=== PATIENT | female | born 1980 | race Caucasian/White ===

== ENCOUNTER 2019-04-16 11:14 | Inpatient (IN) ==
--- NOTE | 2019-04-16 11:42 | PROVIDER DOCUMENTATION ---
This chart was entered by Ebony Linares Scribe, acting as scribe for Marina Rider MD. HPI-Abdominal Pain/GI Problem - General Chief Complaint: Abdominal Pain Stated Complaint: HERNIA SX Time Seen by Provider: 04/16/19 11:19 Source: patient Allergies/Adverse Reactions: Patient Allergies Allergy/AdvReac Type Severity Reaction Status Date / Time No Known Allergies Allergy Verified 04/16/19 11:23 Home Medications: Home Medication List Medication Instructions Recorded Confirmed Last Taken Type Metformin [Glucophage] 500 mg PO BID #60 tab 04/16/19 Unknown Rx - History of Present Illness-ABD Nature of Presenting Problems: Patient is a 38 y/o female presenting to the ED today c/o umbilical hernia pain. Patient states she has had an umbilical hernia for approximately one year. Patient reports it has protruded out twice previously but has reduced easily but state when hernia began to protrude last night, she has been unable to reduce hernia and has had consistent pain. Patient states she has not seen a doctor regarding the hernia as she "avoids doctors". Patient denies all other signs /symptoms. Abdominal Pain Onset Location: reports: periumbilical Pain Radiation: reports: no radiation Onset/Duration: reports: last night Timing: reports: still present Associated Symptoms: denies: diarrhea, fever/chills, genitourinary problems, nausea, vomiting Rectal Bleeding: reports: none Rectal Pain: reports: none Bruising or Bleeding Gums?: No Similar Symptoms Previously?: No Recently seen or treated by another doctor?: No Review of Systems - Adult - REVIEW OF SYSTEMS - ADULT Constitutional: denies: chills, fever Eyes: reports: no symptoms reported Ears, Nose, Mouth & Throat: reports: no symptoms reported Cardiovascular: denies: chest pain Respiratory: denies: cough, shortness of breath Gastrointestinal: reports: abdominal pain. denies: diarrhea, nausea, vomiting Genitourinary: reports: no symptoms reported Musculoskeletal: reports: no symptoms reported Integumentary: reports: no symptoms reported Neurological: reports: no symptoms reported Psychiatric: reports: no symptoms reported Endocrine: reports: no symptoms reported Hematologic/Lymphatic: reports: no symptoms reported Allergic/Immunologic: reports: no symptoms reported All Other Systems: Reviewed and Negative Past History - Adult - PAST MEDICAL HISTORY-ADULT Review of Records: reports: Old Records Reviewed, Nursing Assessment Review, Medications Reviewed, Social history reviewed & non-contributory. Major Childhood Illnesses: reports: denies history Cardiovascular: reports: denies history Respiratory: reports: denies history Gastrointestinal: reports: denies history Obstetrical/Gynecological: reports: denies history Genitourinary: reports: denies history Musculoskeletal: reports: denies history Neurological: reports: denies history Psychiatric: reports: denies history Endocrine/Immune: reports: denies history Other Conditions: reports: denies history Physical Exam-General - PHYSICAL EXAM-ADULT Initial Vital Signs Reviewed: Yes - CONSTITUTIONAL General Appearance: appears well, alert, no apparent distress - EYES Eyes: PERRL/EOMI - HEAD, EARS, NOSE, MOUTH & THROAT HENMT: normocephalic/atraumatic, moist mucous membranes, normal ENT inspection - NECK Neck: non-tender, full range of motion, supple - RESPIRATORY Respiratory: lungs clear, normal breath sounds, no respiratory distress, no accessory muscle use - CARDIOVASCULAR Cardiovascular: regular rate, rhythm, no edema, no murmur - GASTROINTESTINAL (ABDOMEN) Abdominal Exam: normal bowel sounds, soft, hernia (umbilical, 8x6 in diameter, tender, difficult/unable to reduce, no hyperactive bowel sounds in hernia). negative: abdominal bruit, distended - MUSCULOSKELETAL Back Exam: normal inspection, no CVA tenderness, no vertebral tenderness Extremity: normal range of motion, non-tender, normal gait, normal inspection, no pedal edema - SKIN Integumentary: normal color, normal turgor, warm/dry - NEUROLOGIC Neurologic: grossly normal - PSYCHIATRIC Psych/Mental Status: normal mood/affect, normal thought content, normal thought process, oriented x 3 Progress - PLAN OF CARE/RESULTS Progress/Plan/Lab Results: Vital Signs - 8 hr 04/16/19 11:19 Temperature 97.8 F Pulse Rate 87 Respiratory Rate 18 Blood Pressure 130/76 O2 Sat by Pulse Oximetry 96 Patient with incarcerated bowel and SBO. No vomiting in the ED. Glucose also elevated to 330s but patient with no diagnosis of DM. Spoke to patient about the glucose and the CT findings and she voiced understanding. Spoke to Dr Brandt marketing education teacher for general surgery who accepted patient for admission. Wanted zosyn [facility] arted and her transferred to [facility]. Wanted her NPO. Orders placed per his recommendation. Result Diagrams: 04/16/19 11:50 04/16/19 11:50 - CT/MRI 1 CT Study: Abdomen Impression: See EMR Report (EXAM: CT ABD/PELVIS W/IV CONT ONLY 04/16/2019 HISTORY: difficult to reduce umbilical hernia TECHNIQUE: This exam was performed using automated exposure control, adjustment of mA or kV according to patient size, and/or use of iterative reconstruction technique. COMMENT: There is minimal atelectasis or fibrosis in the posterior costophrenic sulci of the lower lobes bilaterally. There are no previous studies available for comparison. There are no abnormal fluid collections in the chest. There may be some small stones layering dependently in the gallbladder. The liver, spleen, adrenal gla nds, and pancreas are within normal limits. There is diverticulosis in the left colon. There are distended small bowel loops proximally. This is apparently due to the presence of a umbilical hernia which includes a small bowel loop. There is fluid within the hernia. There is a moderate amount of stool throughout the ascending and transverse colon. The aorta is not distended. There is no significant adenopathy. The stomach is not distended. Pelvis: The appendix is normal in appearance. Markedly distended small bowel loops are again noted proximal to the umbilical hernia. The distal ileum is normal in caliber. There is free fluid in the cul-de-sac. The urinary bladder is not distended. There is an apparent left ovarian cyst measuring 2.8 cm in diameter. There is vacuum phenomenon in both sacroiliac joints. There is no evidence of acute bony abnormality. IMPRESSION: Incarcerated umbilical hernia with secondary small bowel obstruction. Minimal ascites. Electronically signed by Papito Glovre 04/16/2019 12:49 PM 04/16/19 1249 Interpreting Physician: Papito Glover MD Dictated Date/Time: 04/16/19 1246 cc: Marina Rider MD; None,PCP) - CONSULTS/PCP/HOSPITALIST Notification #1 *Consult/PCP/Hospitalist*: Dr Brandt Time Discussed: 13:05 Consult Disposition: Admit (Zosyn, NPO and transfer to [place]) Departure - Departure Date of Disposition Decision: 04/16/19 Time of Disposition Decision: 13:14 DIAGNOSIS: Diabetes mellitus, new onset, Hyperglycemia, Incarcerated hernia, Small bowel obstruction Disposition: ADMITTED INPATIENT 09 Certified Medical Emergency: Emergent Condition: Stable Additional Instructions: ED Follow Up Instructions: You have been treated by a care provider in the Emergency Department. These instructions are being provided to you so you can have an understanding of how to care for yourself upon discharge. Upon discharge from the Emergency Department, you are responsible for making arrangements for follow-up care by a physician of your choice. Take all prescribed medications as directed. Return to the Emergency Department immediately for any new or worsening symptoms. You may call the Physician Referral phone number at [phone] to obtain a list of Physicians who are taking new patients. Prescriptions: Metformin [Glucophage] 500 mg PO BID #60 tab Referrals and Follow-Ups: None,PCP [Primary Care Provider] - - Critical Care Note This patient required my direct & personal management of CC.: No Attestation - Physician/ MARIO Attestation Patient care was provided by Advanced Practice Provider:: No The physician spent face to face time with patient:: Yes Advanced Practice Provider documentation review:: Supervising physician onsite and consulted in the evaluation and care of this patient. The physician did have a face to face encounter with the patient. This chart was documented by the indicated scribe, (Ebony Linares, Murali) and accurately reflects the services I performed and decisions made by me, Marina Rider MD, as attested by the provider's signature.
[2019-04-16 11:56] LABS: BASO# 0.05 X1000 (0.0-0.2); BASO% 0.3 % (0.0-0.8); EOS# 0.01 X1000 (0.0-0.7); EOS% 0.1 % (0.0-10.0); HEMATOCRIT 46.8 % (37.0-47.0); IMM GRAN# 0.04 X1000 (0.0-0.04); IMM GRAN% 0.2 % (0.0-0.5); LYMPH# 2.57 X1000 (1.2-3.4); LYMPH% 13.7 % (20.5-51.1); MCH 29.6 PG (27-31); MCHC 34.2 g/dL (33-37); MCV 86.5 FL (81-99); MONO# 0.94 X1000 (0.11-0.59); MPV 9.9 FL (7.4-10.4); NEUT# 15.15 X1000 (1.4-6.5); NEUT% 80.7 % (42.2-75.2); PLT 393 X1000 (130-400); RBC 5.41 XMIL (4.2-5.4); RDW 12.2 % (11.5-14.5); WBC 18.76 X1000 (4.8-10.8)
[2019-04-16 12:01] LABS: URINE SOURCE CLEAN CATCH
[2019-04-16 12:03] LABS: BILIRUBIN URINE NEGATIVE (NEGATIVE); BLOOD URINE NEGATIVE (NEGATIVE); COLOR YELLOW; GLUCOSE URINE >1000 mg/dL (NEGATIVE); KETONE URINE 40 mg/dL (NEGATIVE); LEUKOCYTES URINE NEGATIVE (NEGATIVE); NITRITE URINE NEGATIVE (NEGATIVE); PH URINE 5.5; PROTEIN URINE 30 mg/dL (NEGATIVE); TURBIDITY URINE CLEAR (CLEAR); UROBILINOGEN URINE 2 mg/dL (NORMAL)
[2019-04-16 12:05] LABS: UR EPITHELIAL CELLS <10 /HPF (<10); URINE BACTERIA NEGATIVE /HPF; URINE RBC <10 /HPF (<10); URINE WBC <10 /HPF (<10)
[2019-04-16 12:13] LABS: AGAP 15; ALBUMIN 4.8 g/dL (3.5-5.0); ALKALINE PHOSPHATASE 79 U/L (32-104); BUN 17 mg/dL (8-22); CALCIUM 10.6 mg/dL (8.8-10.2); CHLORIDE 93 mmol/L (98-107); COSMO 283; CREATININE 0.6 mg/dL (0.5-0.9); ESTIMATED GFR > 60; GLUCOSE 332 mg/dL (70-104); GOT 11 U/L (10-30); GPT 12 U/L (10-36); POTASSIUM 4.2 mmol/L (3.5-5.1); SODIUM 134 mmol/L (136-145); TCO2 26 mmol/L (25-35); TOTAL PROTEIN 7.9 g/dL (6.3-8.3)
[2019-04-16] MEDS ORDERED: NS 1,000 ML IV ONE ×3 (12:23→16:00)
--- NOTE | 2019-04-16 12:51 | Diag Imaging Result Doc PS360 ---
EXAM: CT ABD/PELVIS W/IV CONT ONLY 04/16/2019 HISTORY: difficult to reduce umbilical hernia TECHNIQUE: This exam was performed using automated exposure control, adjustment of mA or kV according to patient size, and/or use of iterative reconstruction technique. COMMENT: There is minimal atelectasis or fibrosis in the posterior costophrenic sulci of the lower lobes bilaterally. There are no previous studies available for comparison. There are no abnormal fluid collections in the chest. There may be some small stones layering dependently in the gallbladder. The liver, spleen, adrenal glands, and pancreas are within normal limits. There is diverticulosis in the left colon. There are distended small bowel loops proximally. This is apparently due to the presence of a umbilical hernia which includes a small bowel loop. There is fluid within the hernia. There is a moderate amount of stool throughout the ascending and transverse colon. The aorta is not distended. There is no significant adenopathy. The stomach is not distended. Pelvis: The appendix is normal in appearance. Markedly distended small bowel loops are again noted proximal to the umbilical hernia. The distal ileum is normal in caliber. There is free fluid in the cul-de-sac. The urinary bladder is not distended. There is an apparent left ovarian cyst measuring 2.8 cm in diameter. There is vacuum phenomenon in both sacroiliac joints. There is no evidence of acute bony abnormality. IMPRESSION: Incarcerated umbilical hernia with secondary small bowel obstruction. Minimal ascites. Electronically signed by Papito Glover 04/16/2019 12:49 PM
[2019-04-16] MEDS ORDERED: ZOFRAN IV PRN ×3 (13:16→21:17)
[2019-04-16] MEDS ORDERED: TORADOL IV PRN ×2 (13:16→15:38)
[2019-04-16] MEDS ORDERED: MORPHINE IV PRN ×2 (13:16→15:38)
[2019-04-16] MEDS ORDERED: HUMULIN R (PARKWAY) SUBQ PRN (13:18)
--- NOTE | 2019-04-16 15:23 | Diag Imaging Result Doc PS360 ---
EXAM: CHEST/ABD TUBE PLACEMENT HISTORY: NGT placement TECHNIQUE: Chest abdomen single view COMPARISON: None. FINDINGS: A nasogastric tube overlies the esophagus and stomach. This appears to be in good position. No free air beneath the diaphragm. Electronically signed by Hesham Escalona 04/16/2019 3:21 PM
[2019-04-16] MEDS ORDERED: HUMULIN R SUBQ PRN (15:42)
[2019-04-16] MEDS ORDERED: SENSORCAINE 0.5%-EPI 1:200,000 ONE (16:12)
[2019-04-16] MEDS ORDERED: HURRICAINE SPRAY (DOSE) ONE (16:13)
[2019-04-16] MEDS ORDERED: XYLOCAINE-MPF 2% ONE ×3 (16:25→18:08)
[2019-04-16] MEDS ORDERED: ROBINUL ONE ×2 (16:25→16:42)
[2019-04-16] MEDS ORDERED: NEO-SYNEPHRINE ONE (16:25)
[2019-04-16] MEDS ORDERED: STERILE WATER INJ. ONE (16:25)
[2019-04-16] MEDS ORDERED: NORCURON ONE (16:25)
[2019-04-16] MEDS ORDERED: FENTANYL ONE ×2 (16:25→16:43)
[2019-04-16] MEDS ORDERED: SODIUM CHLORIDE 0.9% 20 ML ONE (16:25)
[2019-04-16] MEDS ORDERED: QUELICIN (DOSE) ONE (16:25)
[2019-04-16] MEDS ORDERED: DIPRIVAN 1% ONE (16:29)
[2019-04-16] MEDS ORDERED: VERSED ONE (16:30)
[2019-04-16] MEDS ORDERED: LR 1,000 ML ONE ×2 (16:33→18:47)
[2019-04-16] MEDS ORDERED: PEPCID ONE (16:47)
[2019-04-16] MEDS ORDERED: ZOSYN 3.375 GM in NS 50 ML IV ONE (17:00)
[2019-04-16] MEDS ORDERED: DECADRON ONE (17:09)
[2019-04-16] MEDS ORDERED: ZOFRAN ONE (17:09)
[2019-04-16] MEDS ORDERED: NEOSTIGMINE ONE (17:10)
--- NOTE | 2019-04-16 17:30 | HISTORY AND PHYSICAL ---
DATE: 04/16/2019 CHIEF COMPLAINT: Abdominal pain. REASON FOR CONSULTATION: Incarcerated ventral hernia. HISTORY OF PRESENT ILLNESS: This is a 38-year-old female, otherwise healthy. She has had no prior abdominal surgery. She has known she has had a bulge at her umbilicus, but it became acutely more painful. She developed nausea, vomiting, and it was swollen. She went to the ER where attempts at reduction were unsuccessful. CT scan showed an incarcerated umbilical hernia containing small bowel and obstruction, but no evidence of ischemia. NG tube was placed, Ogden catheter placed. MEDICAL HISTORY: Negative. SURGICAL HISTORY: Negative. SOCIAL HISTORY: She does smoke about 1/2 pack a day. She works as a cook. FAMILY HISTORY: Reviewed and noncontributory. REVIEW OF SYSTEMS: A 10-point review of systems was performed and negative unless otherwise mentioned in the HPI. OBJECTIVE: Vital Signs: On exam, she is afebrile. Pulse 76, blood pressure 121/76, oxygen saturation of 93%. She is 106 pounds, 5 feet 8. General: She is alert, in no acute distress, but obviously uncomfortable. HEENT: No scleral icterus. There is NG tube in place. Cardiovascular: Normal rate. Pulmonary: No increased work of breathing. Abdomen: Soft. There is a supraumbilical hernia that is firm, tense. There are no overlying skin changes. Very tender. Integumentary: Warm and dry. Psychiatric: Appropriate affect. Neurologic: No gross deficits. Lymphatic: No inguinal or cervical adenopathy. Peripheral Vascular: No lower extremity edema. LABS: She does have leukocytosis. White count is 18, hematocrit 46, platelets 393,000. Creatinine is 0.6. Glucose is 332. LFTs are normal. Albumin is normal. Urinalysis, she does have 1000 glucose in her urine. I reviewed her CT scan that shows findings noted in her HPI. ASSESSMENT AND PLAN: This is a 38-year-old female with incarcerated ventral hernia and bowel obstruction associated with this. I do not see obvious signs of ischemia, although she does have leukocytosis. She is quite tender. I have recommended emergent operation and repair with reduction of the bowel, possible bowel resection. We discussed that we will not use mesh given the emergent setting and the possibility of bowel compromise. Although the defect itself is quite small, I am doubtful that mesh is indicated. We did discuss possibility of requiring hernia repair in the future. She understands. We discussed risk of bleeding, infection, damage to surrounding structures, bowel resection, possible leak, possible recurrence, and anticipated recovery. She understands all this and consents. We will mobilize her to the operating room as soon as possible. cc: Keysha Brandt MD
[2019-04-16] MEDS: DILAUDID ONE ×4 (18:47→19:15)
--- NOTE | 2019-04-16 18:48 | Diag Imaging Result Doc PS360 ---
EXAM: KUB ABDOMEN HISTORY: INCORRECT INSTRUMENT COUNT TECHNIQUE: Single view COMPARISON: 3:14 PM FINDINGS: There are midline skin jayna. A Ogden catheter is present in the urinary bladder. There is no other foreign body identified in the abdomen or pelvis. There is an ileus. IMPRESSION: No abnormal foreign body identified. Electronically signed by Hesham Escalona 04/16/2019 6:46 PM
--- NOTE | 2019-04-16 19:11 | OPERATIVE NOTE ---
PROCEDURE DATE: 04/16/2019 PREOPERATIVE DIAGNOSIS: Incarcerated ventral hernia causing bowel obstruction. POSTOPERATIVE DIAGNOSIS: Incarcerated ventral hernia causing bowel obstruction and strangulation of the greater omentum. PROCEDURE PERFORMED: Open repair of incarcerated ventral hernia with partial omentectomy. ESTIMATED BLOOD LOSS: 50 mL SPECIMENS: 1. Hernia sac. 2. Partial omentum. ANESTHESIA: General. INDICATION: A 38-year-old female who has a longstanding periumbilical hernia. She developed acute onset of increasing size, pain and tenderness with nausea and vomiting. She came to the ER, where CT scan was obtained. OPERATIVE FINDINGS: There was incarcerated omentum that showed early gangrenous changes. There was a loop of small intestine that had reduced but was quite angry and congested. It was not necrotic, and it was peristalsing with what was felt to be adequate perfusion. No evidence of perforation. The hernia defect was initially small, but it was extended to provide reduction and total defect was 7 or 8 cm in length. The fascia was healthy. OPERATIVE NOTE: Risks, benefits and alternatives were discussed with the patient. She consented to the procedure, seen preoperatively. The surgical site was confirmed. She was taken to the operating room emergently for the above procedure. For details, please see dictated operative note. She already had a NG tube and a Ogden catheter in place. Her abdomen was prepped with chlorhexidine solution and draped in the usual fashion. After a time-out, we made an incision over the hernia, starting at an area cephalad to this and carried this down to the fascia. We identified the hernia sac, protecting it. I dissected it out circumferentially. It was quite large, very tense. We carried this down due to the opening in the fascia, which was quite small and would not allow reduction. We opened the hernia sac, excising the sac and extended our fascial incision to provide adequate exploration of the abdomen and reduction of the hernia. We were able to do this successfully. We eviscerated some of the small bowel and inspected this. The transverse colon was healthy. There was a knuckle of small bowel that was clearly the portion that was incarcerated, but it was viable. There was some necrotic omentum that was divided with electrocautery, ligated with Vicryl suture and reduced. Hemostasis was noted. We irrigated the abdomen. Given the necrotic omentum and incarcerated bowel, we elected to not use a mesh repair, as she was not obese and her fascia was healthy. We closed this with interrupted #1 Prolene sutures along the midline with no tension. We irrigated the superficial wound and noted hemostasis. We closed the skin with surgical clips. A gauze Medipore dressing and abdominal binder were applied. She was awoken. Her NG tube was removed at the end of the case. She tolerated this well. She was transferred to recovery. I spoke with the . cc: Keysha Brandt MD
[2019-04-16] MEDS ORDERED: D50W SYRINGE IV PRN (19:45)
[2019-04-16] MEDS: LR 1,000 ML IV SCH (19:45)
[2019-04-17] MEDS: PROTONIX IV SCH ×2 (00:23→22:33)
[2019-04-17] MEDS: SODIUM CHLORIDE 0.9% INJ SCH ×2 (00:23→22:34)
[2019-04-17] MEDS: HUMULIN R SUBQ SCH ×5 (00:44→22:35)
[2019-04-17] MEDS: LR 1,000 ML IV SCH ×3 (02:37→19:20)
[2019-04-17] MEDS: DILAUDID IV PRN ×6 (02:40→22:57)
[2019-04-17 07:06] LABS: BASO# 0.03 X1000 (0.0-0.2); BASO% 0.3 % (0.0-0.8); EOS# 0.02 X1000 (0.0-0.7); EOS% 0.2 % (0.0-10.0); HEMATOCRIT 39.9 % (37.0-47.0); HEMOGLOBIN 13.2 g/dL (12.0-16.0); IMM GRAN# 0.02 X1000 (0.0-0.04); IMM GRAN% 0.2 % (0.0-0.5); LYMPH# 2.54 X1000 (1.2-3.4); LYMPH% 21.2 % (20.5-51.1); MCHC 33.1 g/dL (33-37); MCV 90.7 FL (81-99); MONO% 7.5 % (1.7-9.3); MPV 10.1 FL (7.4-10.4); NEUT# 8.49 X1000 (1.4-6.5); NEUT% 70.6 % (42.2-75.2); PLT 297 X1000 (130-400); RDW 12.2 % (11.5-14.5)
[2019-04-17 07:25] LABS: AGAP 9; BUN 16 mg/dL (8-22); CALCIUM 8.7 mg/dL (8.8-10.2); CHLORIDE 101 mmol/L (98-107); COSMO 281; CREATININE 0.7 mg/dL (0.5-0.9); ESTIMATED GFR > 60; GLUCOSE 173 mg/dL (70-104); MAGNESIUM 1.8 mg/dL (1.5-2.7); POTASSIUM 4.5 mmol/L (3.5-5.1); SODIUM 138 mmol/L (136-145); TCO2 28 mmol/L (25-35)
[2019-04-17] MEDS: PERIDEX MT SCH ×2 (08:32→22:35)
[2019-04-17] MEDS: LOVENOX SUBQ SCH (08:32)
--- NOTE | 2019-04-17 12:09 | GENERAL SURGERY PROGRESS NOTE ---
DATE: 04/17/2019 SUBJECTIVE: She feels well. No nausea or vomiting. She is sore. No fevers, pulse 62, blood pressure 113/66. Her abdomen is soft. Her binder is in place. White count is down to 12, hematocrit is 39 creatinine 0.7. Glucose has been in the mid high 100s. ASSESSMENT/PLAN: A 38-year-old female status post incarcerated ventral hernia repair. We will discontinue her Ogden, give her clear liquids today. I have encouraged her to be out of bed and ambulate. I have Lovenox ordered for her, as well as a proton pump inhibitor. We will continue to follow along. cc: Keysha Brandt MD
[2019-04-18] MEDS: DILAUDID IV PRN ×6 (02:40→21:14)
[2019-04-18] MEDS: LR 1,000 ML IV SCH ×4 (02:41→21:10)
[2019-04-18] MEDS: HUMULIN R SUBQ SCH ×4 (04:39→21:11)
[2019-04-18] MEDS: PERIDEX MT SCH ×2 (08:50→21:10)
[2019-04-18] MEDS: LOVENOX SUBQ SCH (08:50)
--- NOTE | 2019-04-18 14:50 | GENERAL SURGERY PROGRESS NOTE ---
DATE: 04/18/2019 Doing well. Pain is improved. She is not passing gas. She is tolerating clear liquids with no vomiting. She is voiding without difficulty after her Ogden has been removed. She is ambulating the halls. On exam, she has an abdominal binder in place. Her abdomen is soft, nondistended, and appropriately tender. She is on prophylactic Lovenox and a PPI. We will decrease her IV fluids. We will keep her on clear liquids until she has return of bowel function, and advance her diet from there. Otherwise, continue out of bed and ambulating. cc: Keysha Brandt MD
[2019-04-18] MEDS: PROTONIX IV SCH (21:10)
[2019-04-18] MEDS: SODIUM CHLORIDE 0.9% INJ SCH (21:11)
[2019-04-19] MEDS: HUMULIN R SUBQ SCH ×2 (02:36→07:39)
[2019-04-19] MEDS: DILAUDID IV PRN ×2 (04:18→10:36)
[2019-04-19] MEDS: LR 1,000 ML IV SCH ×2 (04:19→08:26)
[2019-04-19 07:20] VITALS: BP 127/69
[2019-04-19] MEDS: PERIDEX MT SCH (08:26)
[2019-04-19] MEDS: LOVENOX SUBQ SCH (08:26)
--- NOTE | 2019-04-19 14:10 | DISCHARGE SUMMARY ---
ADMISSION DATE: 04/16/2019 DISCHARGE DATE: 04/19/2019 ADMITTING DIAGNOSIS: Incarcerated ventral hernia. POSTOPERATIVE DIAGNOSIS: Incarcerated ventral hernia. PROCEDURE PERFORMED: Repair of incarcerated ventral hernia. HISTORY OF PRESENT ILLNESS: This os a 38-year-old female who has had a long-standing periumbilical hernia. She developed acute increase in size and pain with nausea vomiting associated with this. CT scan in the emergency department showed a bowel obstruction related to incarcerated loop of small intestine. HOSPITAL COURSE: Patient taken emergently on the day of her admission for above procedure. For details, please see dictated operative note. Postoperatively she was admitted for bowel rest, IV fluids and pain control. Her Ogden was removed on postop day 1. She was continued on prophylactic Lovenox PPI and she was given clear liquids. By the day of her discharge, she was tolerating clear liquids. She had return of bowel function. She was voiding. She is moving about the room and her pain was well controlled. She was felt safe for discharge. Her incision was clean, dry, and intact. No evidence cellulitis or recurrence. DISPOSITION: Home to self-care in the care of her . DISCHARGE MEDICATIONS: She can continue taking her home medications. She is given prescription for [place], Colace, and Zofran. DISCHARGE INSTRUCTIONS: Discharge instructions were given in written and verbal format. DISCHARGE DIET: She will advance slowly to a GI soft diet the next couple days. Otherwise, pushing oral hydration. cc: Keysha Brandt MD
== END 2019-04-19 12:02 | disposition home or self-care (01) | DRG 355 ==
LOC: P.ED 11:14 → 4N 15:33
PROVIDERS: ADMIT Surgery; ATTEND Surgery
PROC: GE.OMEN (2019-04-16 16:55)